=== PATIENT | female | born 1995 | race African-American/Black ===

== ENCOUNTER 2017-07-09 10:39 | Emergency (ER) | payer OTHER ==
[~2017-07-09] VITALS: Ht 162.6 cm; Wt 62.0 kg
[2017-07-09 10:48] VITALS: TEMP 37.1; Ht 162.6 cm; Wt 62.0 kg
[2017-07-09] MEDS ORDERED: KETOROLAC TROMETHAMINE 30 MG/ML VIAL IV STA (11:35)
[2017-07-09] MEDS ORDERED: OPTIRAY 320 IV PRN (11:45)
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
[2017-07-09 12:20] LABS: CALCIUM 9.3 mg/dl (8.5-10.1); CREATININE 0.74 mg/dl (0.60-1.20); POTASSIUM 3.8 mmol/L (3.5-5.1)
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
[2017-07-09 13:35] VITALS: BP 105/78; PULSE 77; O2SAT 100
[2017-07-09] MEDS ORDERED: FLEXERIL HOME PACK 10 MG VIAL PO STA (13:39)
[2017-07-09] MEDS ORDERED: CYCL5TAB PO (13:42)
== END 2017-07-09 14:05 | disposition home or self-care (01) ==
LOC: C.EDC 10:41
DX: M54.6 Pain in thoracic spine (principal); M54.5 Low back pain; R10.32 Left lower quadrant pain; M25.512 Pain in left shoulder; V57.6XXA Passenger in pick-up truck or van injured in collision with fixed or stationary object in traffic accident, initial encounter; Y92.411 Interstate highway as the place of occurrence of the external cause; K76.9 Liver disease, unspecified